=== PATIENT | male | born 1940 | race Caucasian/White ===

== ENCOUNTER → 2018-10-02 | Outpatient (CLI) | payer OTHER ==
[~2018-10-02] VITALS: Ht 177.8 cm; Wt 74.8 kg
[~2018-10-02] MED LIST: ASPIR 8181 MG PO; CALCIUM500 MG PO; CO Q-10100 MG PO; FLOMAX0.4 MG PO; FLORINEF ACETA0.1 MG PO; LIPITOR40 MG PO; PREDNISONE 5 MG5 M1 PO; VITAMIN D-32000 UNIT PO; XALATAN2.5 M1 OPHTHALMIC
--- NOTE | 2018-10-03 14:06 | PATH ---
[facility] [place] [address] PATHOLOGY RPT PROCEDURE Name: DIXON ZAMARRIPA Room #: REG [facility] MWilber.#: [id number] ������������������ Admission: 10/02/18 ������������������ Date of : 44 Discharge: Report #: [id number] Path Case #: [id number] [facility] Accession Number: [id number] . 01 Material submitted: . PART A: colon - POLYP AT ASCENDING COLON X4. Modifiers: ascending PART B: colon - POLYP AT TRANSVERSE COLON. Modifiers: transverse PART C: colon - POLYP AT DESCENDING COLON. Modifiers: descending PART D: rectum - POLYP AT RECTO SIGMOID. Modifiers: sigmoid PART E: rectum - POLYP AT RECTUM X3 . 01 Clinical history: . Pre-OP DX: Hx polyps Post-OP DX: Colon polyps, rectal polyps, hemorrhoid . 02 Diagnosis: A. "Polyp at ascending colon x4", biopsy: - Tubular adenoma; no high-grade dysplasia. . B. "Polyp at transverse colon", biopsy: - Tubular adenoma; no high-grade dysplasia. . C. "Polyp at descending colon", biopsy: - Tubular adenoma; no high-grade dysplasia. . D. "Polyp at rectosigmoid", biopsy: - Tubular adenoma; no high-grade dysplasia. . E. "Polyp at rectum x3", biopsy: - Tubular adenoma and tubulovillous adenoma; no high-grade dysplasia. . (OBEDW:amy; 10/03/2018) MBR/10/03/2018 . 02 Electronically signed: . Brigida Raymond MD, Pathologist NPI- [id number] . 01 Gross description: . A. Received in formalin labeled "Dixon Zamarripa, polyp at ascending colon x4," are multiple segments of hurtado soft tissue measuring 2.1 x 0.6 x 0.1 cm in aggregate dimensions. The specimen is filtered and entirely submitted in cassette A1. . B. Received in formalin labeled "Dixon Zamarripa, polyp at transverse colon," is a single segment of hurtado soft tissue measuring 0.5 cm in maximum dimension. The specimen is entirely submitted in cassette B1. [address] [address] PATHOLOGY RPT PROCEDURE Name: DIXON ZAMARRIPA Room #: REG CL Carlos#: [id number] ������������������ Admission: 10/02/18 ������������������ Date of : 44 Discharge: Report #: [id number] Path Case #: [id number] . C. Received in formalin labeled "Dixon Zamarripa, polyp at descending colon," are multiple segments of hurtado soft tissue measuring 1.3 x 0.6 x 0.1 cm in aggregate dimensions. The specimen is filtered and entirely submitted in cassette C1. . D. Received in formalin labeled "Dixon Zamarripa, polyp at rectosigmoid," is a single segment of hurtado soft tissue measuring 0.6 cm in maximum dimension. The specimen is entirely submitted in cassette D1. . E. Received in formalin labeled "Dixon Zamarripa, polyp at rectum," is a 1.8 x 1.3 x 1.5 cm polypoid piece of hurtado soft tissue. The margin is inked and the tissue is sectioned perpendicular to the margin and submitted entirely in cassette E1 through E3. Additionally received in the same container are multiple segments of hurtado soft tissue measuring 1.4 x 0.6 x 0.1 cm in aggregate dimensions. The specimen is filtered and entirely submitted in cassette E4. (TSD; 10/02/2018) TOB/TOB . 02 Pathologist provided ICD-10: D12.2, D12.3, D12.4, D12.7, D12.8 . 02 CPT . 361680, 779696, 530606, 877659, 982411 Specimen Comment: A courtesy copy of this report has been sent to Specimen Comment: [phone], . Specimen Comment: Report sent to / DR PRICE Performed at: [address], [place], [place] [id number] MD Dustin Garcia MD Phone: [phone] Performed at: [address] [id number] MD Simran Sagastume MD Phone: [phone]
== END ==
LOC: GI 06:54
DX: Z12.11 Encounter for screening for malignant neoplasm of colon (principal); D12.2 Benign neoplasm of ascending colon; D12.3 Benign neoplasm of transverse colon; D12.4 Benign neoplasm of descending colon; D12.7 Benign neoplasm of rectosigmoid junction; D12.8 Benign neoplasm of rectum; K64.8 Other hemorrhoids; N40.0 Benign prostatic hyperplasia without lower urinary tract symptoms; E78.5 Hyperlipidemia, unspecified; E78.00 Pure hypercholesterolemia, unspecified; Z86.010 Personal history of colon polyps; Z98.890 Other specified postprocedural states; Z79.82 Long term (current) use of aspirin; Z79.899 Other long term (current) drug therapy
CPT/HCPCS: 62110; 62900

== ENCOUNTER → 2019-10-10 | Outpatient (CLI) | payer OTHER | LOC: LAB 10:28 | PROVIDERS: ATTEND Student in an Organized Health Care Education/Training Program | DX: Z01.812 Encounter for preprocedural laboratory examination (principal); Z11.59 Encounter for screening for other viral diseases ==

== ENCOUNTER → 2019-10-15 | Outpatient (CLI) | payer OTHER ==
[~2019-10-15] VITALS: Ht 177.8 cm; Wt 74.8 kg
--- NOTE | 2019-10-16 18:06 | PATH ---
[facility] [address] [place] [address] PATHOLOGY RPT PROCEDURE Name: DIXON ZAMARRIPA Room #: REG CL M.R.#: [id number] Admission: 10/15/19 Date of : 44 Discharge: Report #: [id number] Path Case #: [id number] [facility] Accession Number: [id number] . 01 Material submitted: . splenic flexure - POLYP AT SPLENIC FLEXURE . 02 Diagnosis: Polyp, splenic flexure, endoscopic biopsy: - Tubular adenoma. - Negative for high-grade dysplasia. (IUV:quality assurance intern; 10/16/2019) MBR 10/16/2019 1335 Local . 02 Electronically signed: . Simran Sagastume MD, Pathologist NPI- [id number] . 01 Gross description: . The specimen is received in formalin, labeled "Dixon Zamarripa, polyp at splenic flexure" and consists of 2 fragments of pink-hurtado tissue measuring 0.3 x 0.3 cm and 0.5 x 0.4 cm which are entirely submitted in A1. (SDY; 10/15/2019) SYU/SYU 10/15/2019 1740 Local . 02 Pathologist provided ICD-10: D12.3 . 02 CPT . 690977 Specimen Comment: A courtesy copy of this report has been sent to [phone] Specimen Comment: [phone] Specimen Comment: Report sent to / DR PRICE Performed at: [address], [place] [id number] MD Dustin Garcia MD Phone: [phone] Performed at: [address] [id number] MD Simran Sagastume MD Phone: [phone]
== END | disposition home or self-care (01) ==
LOC: GI 07:25
PROVIDERS: ATTEND Internal Medicine Gastroenterology
DX: Z09 Encounter for follow-up examination after completed treatment for conditions other than malignant neoplasm (principal); Z86.010 Personal history of colon polyps; D12.3 Benign neoplasm of transverse colon; E78.00 Pure hypercholesterolemia, unspecified; N40.0 Benign prostatic hyperplasia without lower urinary tract symptoms; Z98.890 Other specified postprocedural states; Z79.899 Other long term (current) drug therapy; Z96.611 Presence of right artificial shoulder joint; Z88.8 Allergy status to other drugs, medicaments and biological substances
CPT/HCPCS: 62110; 62900

== ENCOUNTER 2020-08-19 18:45 | Inpatient (IN) | payer OTHER ==
[~2020-08-19] VITALS: Ht 177.8 cm; Wt 74.8 kg
[~2020-08-19 18:45] MED LIST changes: +ASA81BEC PO; -PREDNISONE 5 MG5 M1 PO; +PREDNISONE 5 MG5 MG
[2020-08-19 18:47] VITALS: BP 116/64
[2020-08-19 19:17] LABS: ABSOLUTE NEUTROPHILS 12.9 thou/uL (1.4-8.2); BASOPHILS 0.3 % (0.0-2.0); CALCIUM 8.3 mg/dL (8.5-10.1); CREATININE 0.8 mg/dL (0.7-1.3); HEMATOCRIT 43.1 % (42.0-52.0); HEMOGLOBIN 14.4 gm/dL (14.0-18.0); LYMPHOCYTES 2.4 % (24.0-44.0); MCH 33.3 pg (26.0-34.0); MCHC 33.3 g/dL (28.0-37.0); MONOCYTES 1.2 % (1.0-8.0); PLATELET COUNT 171 thou/uL (150-400); POLYS 96.1 % (36.0-66.0); POTASSIUM 3.9 mmol/L (3.5-5.1); RBC 4.31 mil/uL (4.50-6.00); RDW 14.4 % (10.5-14.5); WBC 13.4 thou/uL (4.0-11.0)
[2020-08-19] MEDS ORDERED: FISH OIL 1,0001 EAC9 PO (19:21)
[2020-08-19] MEDS ORDERED: COLACE100 MG PO (19:22)
[2020-08-19 19:23] LABS: ALBUMIN 3.6 g/dL (3.4-5.0); TOTAL BILIRUBIN 0.9 mg/dL (0.2-1.0); TOTAL PROTEIN 6.4 g/dL (6.4-8.2)
[2020-08-19] MEDS ORDERED: CYCLOBENZAPRINE5 MG PO (19:23)
[2020-08-19] MEDS ORDERED: PERCOCET 5-3251 EACH PO (19:24)
[2020-08-19] MEDS ORDERED: ZOFRAN4 MG PO (19:25)
[2020-08-19 21:57] VITALS: BP 131/74
[2020-08-19 22:23] VITALS: BP 141/78
--- NOTE | 2020-08-19 22:57 | NUR ---
PT IS A/O X4 AND IS UP WITH ASSISTANCE. C/O PAIN TO RIGHT HIP/BUTTOCK AT A LEVEL 2 BUT DOES NOT WISH TO HAVE ANY PAIN MEDICATION AT THIS TIME. ADMISSION IS COMPLETED. PT HAS BEEN EDUCATED ON USE OF CALL LIGHT AND IT IS WITHIN REACH. DRSG IS C/D/I. FALL PRECAUTIONS IN PLACE, CALL LIGHT IS WITHIN REACH. WILL CONTINUE TO MONITOR.
[2020-08-20 04:54] VITALS: BP 97/56
--- NOTE | 2020-08-20 07:34 | EKG ---
[place] [address] [facility] [place] [address] ELECTROCARDIOGRAM REPORT Name: DIXON MAHAJAN Room #: 438-P ADM IN M.R.#: [id number] Admission: 08/19/20 Attend Phys: Jeffrey Marina MD Discharge: Date of : 44 Report #: [id number] [facility] ED Test Date: 2020-08-19 Test Time: 19:29:40 Pat Name: DIXON MAHAJAN Department: Room: 438 Gender: M Olive Picker: trisha : 1940 Requested By: Ge Christensen Order Number: [id number] MD: Jose Espinoza Measurements Intervals [place] Rate: 63 P: 32 ME: 171 QRS: -31 QRSD: 105 T: 3 QT: 436 QTc: 447 Interpretive Statements Sinus rhythm Probable left atrial enlargement Left axis deviation RSR' in V1 or V2, probably normal variant Borderline T abnormalities, inferior leads Baseline wander in lead(s) III,aVF No previous ECG available for comparison Electronically Signed On 08-20-2020 7:34:16 CDT by Jose Espinoza [email or web address] <ELECTRONICALLY SIGNED> By: Jose Espinoza MD, [facility] 08/20/20 0734 1929 1929 Jose Espinoza MD, [facility] /EPI
[2020-08-20 07:53] VITALS: BP 108/66
--- NOTE | 2020-08-20 08:42 | NUR ---
ASSESSMENT: CM REVIEWED CHART AND SPOKE WITH PATIENT. PT IS ALERT AND ORIENTED X4. PT IS S/P RIGHT HIP TENDON REPAIR. PT REPORTS THAT HE LIVES IN A HOUSE WITH HIS AND DAUGHTER. PT REPORTS HAVING 2 STEPS TO ENTER WITH HANDRAILS ON EACH SIDE. PT STATES HIS BEDROOM IS ON THE MAIN LEVEL AND CAN AVOID STEPS IF NEEDED BUT DOES HAVE STEPS TO THE BASEMENT. PT REPORTS THAT HE HAS A CANE, WALKER, AND A WHEELCHAIR IF NEEDED AT HOME WELL CRUTCHES. PT REPORTS HE HAS BEEN GOING TO OUTPATIENT THERAPY AT [facility] AND PLANS TO RESUME THIS WHEN ABLE. CM DISCUSSED ROLE. PT DOES NOT ANTICIPATE HAVING ANY NEEDS FROM CM. PATIENT IS TO WORK WITH THERAPY TODAY. CM WILL CONTINUE TO FOLLOW TO ASSIST NEEDED.
[2020-08-20 12:34] VITALS: BP 108/66
[2020-08-20 13:11] VITALS: BP 108/66
--- NOTE | 2020-08-20 13:12 | NUR ---
RN went over all discharge education, all questions answered, IV out, and discharged home with .
== END 2020-08-20 13:44 | disposition home health service (06) | DRG 645 ==
LOC: ER 18:45 → 4S 20:56 → EROBS 20:56 → 4S 21:56
PROVIDERS: Emergency Medicine; ADMIT Orthopaedic Surgery Sports Medicine; ATTEND Orthopaedic Surgery Sports Medicine
DX: E27.1 Primary adrenocortical insufficiency (principal); R53.1 Weakness; N40.0 Benign prostatic hyperplasia without lower urinary tract symptoms; E78.5 Hyperlipidemia, unspecified; Z96.611 Presence of right artificial shoulder joint; Z98.1 Arthrodesis status; Z98.42 Cataract extraction status, left eye; Z98.41 Cataract extraction status, right eye; Z79.82 Long term (current) use of aspirin; Z79.899 Other long term (current) drug therapy; Z87.891 Personal history of nicotine dependence; Z72.89 Other problems related to lifestyle
CPT/HCPCS: 10195; 50010; 50101; 50382; 50414; 53078; 54118; 56527; 56528; 57103; 57446; 57447; 62110; 62900; 70005